=== PATIENT | male | born 1970 | race Caucasian/White ===

== ENCOUNTER 2020-03-14 09:44 | Day surgery (SDC) | payer OTHER, SELFPAY ==
[2020-03-02 11:36] VITALS: BMI 29.1
--- NOTE | 2020-03-07 14:10 | P.CONAN_ITS ---
Documented by User: Jacqueline Bernstein 03/07/20 14:10 HPI - Anesthesia Eval Consult details Narrative: 49yo M for Upper Endoscopy and Colonoscopy [facility] Past Medical History Medical History Anxiety Elevated cholesterol Family History Family History Mother Stomach cancer Surgical History Surgical History Hx of tonsillectomy Social History Social History Household Members: Spouse and Children Alcohol intake: current Alcohol intake frequency: a few times a week Smoking Status: Never smoker Use of substances other than those prescribed or required for medical reasons: No Advance Directives: No Advance Directives Information Provided: No Advance Directives on File: No Current occupational status: employed Current occupation: [employer] Allergies Allergy/AdvReac Type Severity Reaction Status Date / Time No Known Allergies Allergy Verified 03/14/20 10:29 Home Medications Medication Instructions Recorded Confirmed Type fluticasone propionate [Flonase 1 spray INTRANASAL DAILY 03/02/20 03/02/20 History Allergy Relief] multivitamin 1 tab PO DAILY 03/02/20 03/02/20 History omega 5-dqn-eee-fish oil [Fish Oil] 1 cap PO DAILY 03/02/20 03/02/20 History Exam Exam Date and Time: March 07, 2020 1410 Height,Weight and Vital Signs: Height 6 ft Weight 97.522 kg Assessment and Plan Assessment Anesthesia Assessment: Chart Reviewed Documented by User: Margaret Shelton 03/14/20 11:15 [facility] Past Medical History Medical History Anxiety Elevated cholesterol Family History Family History Mother Stomach cancer Surgical History Surgical History Hx of tonsillectomy Social History Social History Household Members: Spouse and Children Alcohol intake: current Alcohol intake frequency: a few times a week Smoking Status: Never smoker Use of substances other than those prescribed or required for medical reasons: No Advance Directives: No Advance Directives Information Provided: No Advance Directives on File: No Current occupational status: employed Current occupation: [employer] Allergies Allergy/AdvReac Type Severity Reaction Status Date / Time No Known Allergies Allergy Verified 03/14/20 10:29 Home Medications Medication Instructions Recorded Confirmed Type fluticasone propionate [Flonase 1 spray INTRANASAL DAILY 03/02/20 03/02/20 History Allergy Relief] multivitamin 1 tab PO DAILY 03/02/20 03/02/20 History omega 6-elp-kru-fish oil [Fish Oil] 1 cap PO DAILY 03/02/20 03/02/20 History Exam Airway Mallampati Class: I TM Dist: >3cm Neck ROM: Full Loose/Missing/Broken Teeth: No Heart: RRR Lungs: CTA
[2020-03-14 10:11] VITALS: BP 122/86; PULSE 67; RESP 16; TEMP 36.6; O2SAT 98
[2020-03-14] MEDS: Lactated Ringers 1,000 ML 100 ML IVCONT (10:49)
--- NOTE | 2020-03-14 10:57 | MHC.SHP ---
Pre-Procedural Eval Section B Chief Complaint: family hx of malignant of digestive organs Relevant Family History (Specify if Yes): Yes Relevant Social History: Alcohol Use Present Medications: see Short Stay Collaborative assessment Medical History: Significant History (Anxiety, Elevated cholesterol) History of Previous Operations: Relevant previous surgery/procedure and date(s) (tonsils) Allergies: Allergies Allergy/AdvReac Type Severity Reaction Status Date / Time No Known Allergies Allergy Verified 03/14/20 10:29 Review of Systems Sugical H&P ROS: Negative: Constitution, Cardiovascular, Respiratory, Neurological, Psychiatric, Hem-Onc, Allergic/Immunologic, Gastrointestinal, Genitourinary, Musculoskeletal, Integumentary, Endocrine and Eyes/Ears/Nose/Throat Exam Surgical H&P Exam: Normal: HEENT, Normal: Heart, Normal: Lungs, Normal: Extremities, Normal: Abdomen, Normal: Skin and Normal: Neurological Plan Diagnosis/Plan: Unchanged I have reviewed the history and physical and performed a pertinent physical examination on my patient. No changes have occurred unless specified.
--- NOTE | 2020-03-14 11:45 | PM.OP ---
Brief Operative Note Date of Service: 03/14/20 Pre-op diagnosis: FH of stomach ca, colon screening Post-op diagnosis: same Procedure: Operative Information Procedure Description: EGD, Colonoscopy FLEXIBLE TRANSORAL UPPER GASTROINTESTINAL ENDOSCOPY AND COLONOSCOPY PROCEDURE NOTE UPPER ENDOSCOPY Consent: Indications for the procedure and potential complications of bleeding, perforation, reaction to medications and missed diagnosis were discussed with the patient and informed consent was obtained. Instrument: Olympus GIF H 190 J mid size upper endoscope Monitoring: Vital signs and clinical assessment, continuous EKG monitoring, Pulse oximetry, Carbon Dioxide monitoring and blood pressure monitoring were done throughout the procedure. Procedure: The patient was placed in the left lateral decubitis position and pre-procedure medications were administered and a bite block was placed. The endoscope was inserted into the mouth and advanced under direct vision to the third part of duodenum. A careful inspection was made as the upper endoscope was withdrawn including a retroflexed examination of the proximal stomach; Findings and interventions are described below. Findings: Larynx:normal Esophagus: GE junction at 40 cm, diaphragm hiatus at 40 cm, mild GEJ erythema Stomach: Patchy erythema. Biopsies were obtained. Grade 2 flap valve on retroflexed examination of the cardia. Duodenum: mild bulbar duodenitis Intervention: Biopsies as noted above COLONOSCOPY Instrument: Olympus variable stiffness pediatric scope 190L Colonoscopy Monitoring: Vital signs and clinical assessment, continuous EKG monitoring, Pulse oximetry, Carbon Dioxide monitoring and blood pressure monitoring were done throughout the procedure. Colon withdrawal time was 9 minutes. Procedure: The patient was placed in the left lateral decubitis position and pre-procedure medications were administered. After a digital rectal examination of the ano-rectum, the video colonoscope was inserted into the rectum and advanced through the colon to the cecum/TI. The colonoscope was slowly withdrawn in a retrograde panoramic fashion and the colon mucosa was carefully examined including a retroflexed view of the rectum. Findings and interventions are described below. Procedure Difficulty:easy Findings: Terminal Ileum-normal Cecum:normal Ascending Colon: normal Transverse Colon -normal Descending Colon:normal Sigmoid Colon: scattered small diverticula Rectum: Retroflexion with small internal hemorrhoids, grade II, 7-8 mm sessile polyp removed with forceps Anorectum - internal hemorrhoids seen at anal verge Colon preparation: [place] Bowel Preparation Scale Right colon; 3 Transverse colon: 3 Left colon; 3 (0 = Unprepared colon segment with mucosa not seen due to solid stool that cannot be cleared. 1 = Portion of mucosa of the colon segment seen, but other areas of the colon segment not well seen due to staining, residual stool and/or opaque liquid. 2 = Minor amount of residual staining, small fragments of stool and/or opaque liquid, but mucosa of colon segment seen well. 3 = Entire mucosa of colon segment seen well with no residual staining, small fragments of stool or opaque liquid) Impression and Post Procedure Diagnosis: Endoscopy Findings: gastritis Colonoscopy Findings: polyps internal hemorrhoids diverticular disease Plan: Await Pathology results Repeat Colonoscopy in 10 years if hyperplastic polyp, 5-7 yr if adenoma or earlier if clinically indicated High fiber diet leaflet avoid straining at stool, epsom salts and sitz bath, anusol supps or cream if h pylori pos then treat there is not really any guidance for stomach screening for FH of stomach ca in absence of E-Cadherin mutation (CAD- 1), can consider repeat in 3-5 yrs or earlier if any symptoms Above findings were reviewed with the patient and relevant handouts were provided if indicated. Surgeon: Remy Caldera MD Anesthesia: MAC Estimated blood loss (mL): 0 Condition: stable Disposition: PACU
[2020-03-14 11:50] VITALS: BP 104/64; PULSE 68; RESP 16; TEMP 36.9; O2SAT 97
[2020-03-14 12:05] VITALS: BP 112/76; PULSE 68; RESP 16; TEMP 36.9; O2SAT 98
--- NOTE | 2020-03-14 13:05 | HO.POSTANES ---
Post Anesthesia Evaluation Post Anesthesia Evaluation Vital Signs: Vital Signs Temp Pulse Resp BP Pulse Ox 03/14/20 12:05 98.4 F 68 16 112/76 98 03/14/20 11:50 98.4 F 68 16 104/64 97 03/14/20 10:11 97.8 F 67 16 122/86 98 Anesthesia: General (tiva) Mental Status: Awake Pain Control: Satisfactory Nausea/Vomiting: None Hydration: Adequate Anesthesia-Related Issues: No Anes. Related Issues
== END 2020-03-14 12:53 | disposition home or self-care (01) ==
PROVIDERS: PCP Family Medicine; Visit Provider Internal Medicine Gastroenterology
PROC: (CPT 45380; principal; 2020-03-14 11:10)
DX: Z12.11 Encounter for screening for malignant neoplasm of colon (principal); Z80.0 Family history of malignant neoplasm of digestive organs; K62.1 Rectal polyp; K57.30 Diverticulosis of large intestine without perforation or abscess without bleeding; K64.1 Second degree hemorrhoids; R49.0 Dysphonia; K20.90 Esophagitis, unspecified without bleeding; K29.50 Unspecified chronic gastritis without bleeding; B96.81 Helicobacter pylori [H. pylori] as the cause of diseases classified elsewhere; K29.80 Duodenitis without bleeding; K44.9 Diaphragmatic hernia without obstruction or gangrene; Z79.51 Long term (current) use of inhaled steroids; Z79.899 Other long term (current) drug therapy
CPT/HCPCS: 45380; 43239; 88305; 88342

== ENCOUNTER → 2020-03-21 10:49 | Outpatient (BNVA) | payer OTHER, SELFPAY | PROVIDERS: PCP Family Medicine; Referring Provider Family Medicine; Visit Provider Physician Assistant | DX: Z76.89 Persons encountering health services in other specified circumstances (principal) ==

== ENCOUNTER 2020-05-02 09:10 | Outpatient (REF) | payer OTHER, SELFPAY ==
[2020-05-04 14:52] LABS: H Pylori Breath Test DETECTED (NOT DETECTED)
== END 2020-05-02 09:11 | disposition home or self-care (01) ==
LOC: HO.LNP 09:10
PROVIDERS: PCP Family Medicine; Visit Provider Physician Assistant
DX: K27.9 Peptic ulcer, site unspecified, unspecified as acute or chronic, without hemorrhage or perforation (principal); B96.81 Helicobacter pylori [H. pylori] as the cause of diseases classified elsewhere
CPT/HCPCS: 83013

== ENCOUNTER → 2020-05-12 11:08 | Outpatient (BNVA) | payer OTHER, SELFPAY | PROVIDERS: PCP Family Medicine; Visit Provider Physician Assistant ==

== ENCOUNTER 2020-09-01 14:09 | Outpatient (REF) | payer OTHER, SELFPAY ==
[2020-09-02 14:21] LABS: H Pylori Breath Test DETECTED (NOT DETECTED)
== END 2020-09-01 14:10 | disposition home or self-care (01) ==
LOC: HO.LNP 14:09
PROVIDERS: PCP Family Medicine; Visit Provider Physician Assistant
DX: A04.8 Other specified bacterial intestinal infections (principal)
CPT/HCPCS: 83013

== ENCOUNTER → 2020-10-24 15:15 | Outpatient (BNVA) | payer OTHER, SELFPAY | PROVIDERS: PCP Family Medicine; Visit Provider Internal Medicine | DX: M77.01 Medial epicondylitis, right elbow (principal) | CPT/HCPCS: 99202 ==

== ENCOUNTER → 2020-10-28 08:08 | Outpatient (BNVA) | payer OTHER, SELFPAY | PROVIDERS: PCP Family Medicine; Visit Provider Internal Medicine | DX: M77.01 Medial epicondylitis, right elbow (principal) | CPT/HCPCS: 99213 ==

== ENCOUNTER 2020-11-10 09:36 | Outpatient (RCR) | payer OTHER, SELFPAY ==
--- NOTE | 2020-11-28 10:23 | MHC.OT.DC ---
[address] [phone] F: [phone] Occupational Therapy Discharge Note Provider: Dr Blas Diagnosis: Right medial epicondylitis Date of Evaluation: 11/10/20 Date of Discharge: 11/28/20 Treatments to Date: 1 Cancellations to Date: 3 Discharge Status: Independent with HEP Patient Elected to Stop Discharge Summary: 50 yo male assessed in OT for medial epicondylitis, presented w/ decreased strength but very low pain and overall good use of his hand/arm. He has not been seen since initial assessment, but called and aid he is doing well and returned to work. Electronically Signed By: Selma Julian OTR/L Please Sign and return to therapist, thank you for your referral.
== END 2020-11-28 10:24 | disposition home or self-care (01) ==
LOC: HO.OT 09:36
PROVIDERS: PCP Internal Medicine; Visit Provider Internal Medicine
DX: M77.01 Medial epicondylitis, right elbow (principal)
CPT/HCPCS: 97110; 97165

== ENCOUNTER → 2020-11-11 10:41 | Outpatient (BNVA) | payer OTHER, SELFPAY | PROVIDERS: PCP Internal Medicine; Visit Provider Internal Medicine | DX: M77.01 Medial epicondylitis, right elbow (principal) | CPT/HCPCS: 99213 ==

== ENCOUNTER → 2020-11-25 13:54 | Outpatient (BNVA) | payer OTHER, SELFPAY | PROVIDERS: PCP Internal Medicine; Visit Provider Internal Medicine | DX: M77.01 Medial epicondylitis, right elbow (principal) | CPT/HCPCS: 99213 ==

== ENCOUNTER 2020-12-12 09:25 | Outpatient (REF) | payer OTHER, SELFPAY ==
[2020-12-12 11:46] LABS: Alanine Aminotransferase 35 U/L (0-40); Albumin Level 4.6 g/dL (3.5-5.0); Alkaline Phosphatase 75 U/L (39-117); Anion Gap 11 (12-20); Aspartate Amino Transferase 22 U/L (5-37); Bilirubin Total 0.4 mg/dL (0.0-1.0); Blood Urea Nitrogen 15 mg/dL (9-16); Calcium 9.5 mg/dL (8.4-10.2); Carbon Dioxide 28 mmol/L (22-29); Chloride 105 mmol/L (96-108); Cholesterol 228 mg/dL; Estimated Glomerular Filt Rate > 60; Glucose Random 89 mg/dL (60-115); HDL Cholesterol 47 mg/dL; LDL Cholesterol Calculated 165 mg/dl; Sodium 139 mmol/L (135-145); Total Protein 7.7 g/dL (6.5-8.0); Triglycerides 82 mg/dL
[2020-12-12 12:08] LABS: TSH reflex Free T4 1.74 uIU/mL (0.32-4.0)
[2020-12-13 10:12] LABS: LDL Cholesterol Direct 160 mg/dL (<100)
== END 2020-12-12 09:26 | disposition home or self-care (01) ==
LOC: HO.WFDLDS 09:25
PROVIDERS: Visit Provider Family Medicine
DX: Z00.00 Encounter for general adult medical examination without abnormal findings (principal)
CPT/HCPCS: 36415; 80053; 80061; 83721; 84443